=== PATIENT | female | born 1965 ===

== ENCOUNTER 2023-12-28 08:34 | Outpatient (CLI) | payer OTHER | END 2023-12-28 08:40 | disposition home or self-care (01) | LOC: SONOGRAMA 08:34 | PROVIDERS: ATTEND Internal Medicine | DX: K76.0 Fatty (change of) liver, not elsewhere classified (principal); R10.2 Pelvic and perineal pain ==

== ENCOUNTER 2024-02-14 14:01 | Outpatient (CLI) | payer OTHER | END 2024-02-14 14:10 | disposition home or self-care (01) | LOC: MRI 14:01 | PROVIDERS: ATTEND Physical Medicine & Rehabilitation | DX: M54.59 Other low back pain (principal); M54.17 Radiculopathy, lumbosacral region | CPT/HCPCS: 72148 ==

== ENCOUNTER 2024-04-03 09:28 | Outpatient (CLI) | payer OTHER | END 2024-04-03 09:37 | disposition home or self-care (01) | LOC: SONOGRAMA 09:28 | DX: E04.1 Nontoxic single thyroid nodule (principal) ==

== ENCOUNTER 2024-07-15 11:02 | Outpatient (CLI) | payer OTHER | END 2024-07-15 11:14 | disposition home or self-care (01) | LOC: RAD 11:02 | PROVIDERS: ATTEND Physical Medicine & Rehabilitation | DX: M25.561 Pain in right knee (principal) ==

== ENCOUNTER 2024-09-25 10:11 | Outpatient (CLI) | payer OTHER | END 2024-09-25 10:19 | disposition home or self-care (01) | LOC: RAD 10:11 | PROVIDERS: ATTEND Internal Medicine | DX: K76.0 Fatty (change of) liver, not elsewhere classified (principal); I10 Essential (primary) hypertension ==

== ENCOUNTER → 2024-10-27 13:25 | Outpatient (CLI) | payer OTHER | END | disposition home or self-care (01) | LOC: NUCLEAR 10-22 13:15 | PROVIDERS: ATTEND Obstetrics & Gynecology | DX: M81.0 Age-related osteoporosis without current pathological fracture (principal) ==